=== PATIENT | female | born 1960 | race Caucasian/White ===

== ENCOUNTER 2022-03-26 15:21 | Outpatient (CLI) | payer MEDICAID, SELFPAY ==
--- NOTE | 2022-03-26 15:20 | CRLHL7_ITS ---
For Patients: As a result of the Century Cures Act, medical imaging exams and procedure reports are released immediately into your electronic medical record. You may view this report before your referring provider. If you have questions, please contact your health care provider. BILATERAL SCREENING MAMMOGRAM WITH COMPUTER-AIDED DETECTION AND TOMOSYNTHESIS TECHNIQUE: CC and MLO views were obtained. These mammographic images have been obtained using full-field digital technique. These mammographic images were interpreted with the benefit of computer-aided detection. Breast Tomosynthesis was used in this interpretation. COMPARISON FILM: 02/27/21, 01/22/19, 07/19/2018. FINDINGS: The breasts are heterogeneously dense, which may obscure small masses IMPRESSION: There is no radiographic evidence for malignancy. ASSESSMENT: BI-RADS Category 1: Negative RECOMMENDATION: Routine screening mammogram in 1 year. A lay language report of this examination will be provided to the patient. Giorgio Carrillo M.D. Diagnostic Radiologist [email or web address] OLIVA/Dictated by: Giorgio Carrillo MD @ 03/29/2022 9:39:00 AM (Electronically Signed)
== END 2022-03-26 15:22 | disposition home or self-care (01) ==
LOC: MAMMO 15:22
PROVIDERS: PCP Physician Assistant Medical; Visit Provider Physician Assistant Medical
DX: Z12.31 Encounter for screening mammogram for malignant neoplasm of breast (principal); R92.2 Inconclusive mammogram
CPT/HCPCS: 77063; 77067

== ENCOUNTER 2023-03-31 12:10 | Outpatient (CLI) | payer MEDICAID, SELFPAY | END 2023-03-31 12:11 | disposition home or self-care (01) | PROVIDERS: PCP Physician Assistant Medical; Visit Provider Family Medicine | DX: R10.30 Lower abdominal pain, unspecified (principal) | CPT/HCPCS: 80053; 87086; 87491; 87591 ==

== ENCOUNTER 2023-04-05 10:29 | Outpatient (CLI) | payer MEDICAID, SELFPAY ==
--- NOTE | 2023-04-05 10:45 | CRLHL7_ITS ---
For Patients: As a result of the Century Cures Act, medical imaging exams and procedure reports are released immediately into your electronic medical record. You may view this report before your referring provider. If you have questions, please contact your health care provider. INDICATION: Pelvic pain / lower abdominal pain COMPARISON: none TECHNIQUE: 2D stauffer scale and color Doppler images were acquired of the pelvis using a transabdominal and transvaginal approach. FINDINGS: Sonographic images demonstrate a normal size and smooth outer contour of the uterus. Uterus measures 7.5 cm in length by 3.2 cm in AP diameter by 4.8 cm in transverse dimension. The myometrium has a normal uniform echotexture. The endometrial lining measures 10 mm in composite thickness. The right ovary measures 1.8 x 0.9 x 1.3 cm in size and the left ovary measures 1.9 x 0.8 x 1.3 cm. The ovaries demonstrate normal arterial and venous blood flow on color Doppler analysis. There are no suspicious fluid collections within the cul-de-sac. IMPRESSION: No uterine fibroid. Endometrial thickness 1 cm. Normal ovaries. No excess pelvic free fluid or adnexal mass. Mild pelvic congestion may be present. Dictated by Giorgio Carrillo MD @ 04/05/2023 1:30:15 PM (Electronically Signed)
== END 2023-04-05 10:30 | disposition home or self-care (01) ==
LOC: US 10:29
PROVIDERS: PCP Physician Assistant Medical; Visit Provider Family Medicine
DX: R10.30 Lower abdominal pain, unspecified (principal); R10.2 Pelvic and perineal pain
CPT/HCPCS: 76830; 76856; 93976

== ENCOUNTER 2023-04-12 13:18 | Outpatient (CLI) | payer MEDICAID, SELFPAY ==
--- NOTE | 2023-04-12 13:20 | CRLHL7_ITS ---
For Patients: As a result of the Cures Act, medical imaging exams and procedure reports are released immediately into your electronic medical record. You may view this report before your referring provider. If you have questions, please contact your health care provider. BILATERAL SCREENING MAMMOGRAM WITH COMPUTER-AIDED DETECTION AND TOMOSYNTHESIS TECHNIQUE: CC and MLO views were obtained. These mammographic images have been obtained using full-field digital technique. These mammographic images were interpreted with the benefit of computer-aided detection. Breast tomosynthesis was used in this interpretation. COMPARISON FILM: 03/26/22, 02/27/21, 01/23/20. FINDINGS: There are scattered areas of fibroglandular density. IMPRESSION: There is no radiographic evidence for malignancy. ASSESSMENT: BI-RADS Category 1: Negative RECOMMENDATION: Routine screening mammogram in 1 year. A lay language report of this examination will be provided to the patient. GIORGIO CAMPOS M.D. Diagnostic Radiologist [email or web address] Transcribed: 04/13/2023, 6:[address]/Dictated by: Giorgio Campos MD @ 04/13/2023 9:12:00 AM (Electronically Signed)
== END 2023-04-12 13:19 | disposition home or self-care (01) ==
LOC: MAMMO 13:19
PROVIDERS: PCP Physician Assistant Medical; Visit Provider Physician Assistant Medical
DX: Z12.31 Encounter for screening mammogram for malignant neoplasm of breast (principal)
CPT/HCPCS: 77063; 77067

== ENCOUNTER 2023-06-30 10:00 | Outpatient (CLI) | payer MEDICAID, SELFPAY | END 2023-06-30 10:01 | disposition home or self-care (01) | LOC: NFLDREF 07-11 13:08 | PROVIDERS: PCP Physician Assistant Medical; Referring Provider Physician Assistant Medical; Visit Provider Physician Assistant Medical | DX: Z13.29 Encounter for screening for other suspected endocrine disorder (principal); Z13.220 Encounter for screening for lipoid disorders | CPT/HCPCS: 80061; 84443 ==

== ENCOUNTER 2024-05-08 13:53 | Outpatient (CLI) | payer MEDICARE, SELFPAY ==
--- NOTE | 2024-05-08 14:00 | CRLHL7_ITS ---
For Patients: As a result of the Century Cures Act, medical imaging exams and procedure reports are released immediately into your electronic medical record. You may view this report before your referring provider. If you have questions, please contact your health care provider. BILATERAL SCREENING MAMMOGRAM WITH COMPUTER-AIDED DETECTION AND TOMOSYNTHESIS TECHNIQUE: CC and MLO views were obtained. These mammographic images have been obtained using full-field digital technique. These mammographic images were interpreted with the benefit of computer-aided detection. Breast Tomosynthesis was used in this interpretation. COMPARISON FILM: 04/12/23, 03/26/22, 02/27/21. FINDINGS: The breasts are heterogeneously dense, which may obscure small masses. IMPRESSION: There is no radiographic evidence for malignancy. ASSESSMENT: BI-RADS Category 1: Negative RECOMMENDATION: Routine screening mammogram in 1 year. A lay language report of this examination will be provided to the patient. Giorgio Carrillo M.D. Diagnostic Radiologist [email or web address] SP/Dictated by: Giorgio Carrillo MD @ 05/09/2024 9:23:00 AM (Electronically Signed)
== END 2024-05-08 13:54 | disposition home or self-care (01) ==
LOC: MAMMO 13:55
PROVIDERS: PCP Physician Assistant Medical; Visit Provider Physician Assistant Medical
DX: Z12.31 Encounter for screening mammogram for malignant neoplasm of breast (principal); R92.333 Mammographic heterogeneous density, bilateral breasts
CPT/HCPCS: 77063; 77067

== ENCOUNTER 2024-06-29 10:21 | Outpatient (CLI) | payer MEDICARE, SELFPAY | END 2024-06-29 10:22 | disposition home or self-care (01) | LOC: MRI 10:22 | PROVIDERS: PCP Physician Assistant Medical; Visit Provider Orthopaedic Surgery | DX: M25.512 Pain in left shoulder (principal); M75.02 Adhesive capsulitis of left shoulder; M25.412 Effusion, left shoulder | CPT/HCPCS: 73221 ==

== ENCOUNTER 2024-10-04 12:58 | Outpatient (CLI) | payer MEDICARE, SELFPAY | END 2024-10-04 12:59 | disposition home or self-care (01) | PROVIDERS: PCP Physician Assistant Medical; Visit Provider Physician Assistant | DX: R51.9 Headache, unspecified (principal); R35.0 Frequency of micturition | CPT/HCPCS: 85651; 86140; 87086 ==

== ENCOUNTER 2024-11-20 09:39 | Outpatient (CLI) | payer MEDICARE, SELFPAY | END 2024-11-20 09:40 | disposition home or self-care (01) | LOC: FRMREF 14:14 | PROVIDERS: PCP Physician Assistant Medical; Referring Provider Physician Assistant Medical; Visit Provider Physician Assistant Medical | DX: F51.01 Primary insomnia (principal); F41.9 Anxiety disorder, unspecified; F32.A Depression, unspecified; B00.1 Herpesviral vesicular dermatitis; Z13.6 Encounter for screening for cardiovascular disorders | CPT/HCPCS: 80053; 80061; 84439; 84443 ==

== ENCOUNTER 2025-02-04 12:52 | Outpatient (CLI) | payer MEDICARE, SELFPAY | END 2025-02-04 12:53 | disposition home or self-care (01) | LOC: NFLDREF 02-06 19:34 | PROVIDERS: PCP Physician Assistant Medical; Referring Provider Physician Assistant Medical; Visit Provider Physician Assistant Medical | DX: E03.8 Other specified hypothyroidism (principal) | CPT/HCPCS: 84443 ==

== ENCOUNTER 2025-02-12 12:11 | Outpatient (CLI) | payer MEDICARE, SELFPAY ==
--- NOTE | 2025-02-12 12:15 | CRLHL7_ITS ---
For Patients: As a result of the Century Cures Act, medical imaging exams and procedure reports are released immediately into your electronic medical record. You may view this report before your referring provider. If you have questions, please contact your health care provider. INDICATION: Dizziness/giddiness. TECHNIQUE: Brain MRI without contrast. COMPARISON: Brain MRI from 08/28/2021. FINDINGS: No evidence of acute ischemia. No evidence of acute or chronic intracranial blood products. No pathologic intracranial signal abnormality. No mass effect or herniation. No hydrocephalus or extra-axial collections. The pituitary gland, parasellar structures and optic chiasm are normal. Posterior fossa is normal. All the major intracranial vascular structures demonstrate normal flow-related signal. The orbital contents are normal. No calvarial or skull base marrow replacing process. No obstructive sinus disease. No extracranial soft tissue findings. IMPRESSION: 1. Stable exam. No significant intracranial abnormality. Dictated by Meir Randall MD @ 02/13/2025 7:18:08 AM (Electronically Signed)
== END 2025-02-12 12:12 | disposition home or self-care (01) ==
LOC: MRI 12:12
PROVIDERS: PCP Physician Assistant Medical; Visit Provider Physician Assistant Medical
DX: R42 Dizziness and giddiness (principal); R51.9 Headache, unspecified; G89.29 Other chronic pain
CPT/HCPCS: 70551